=== PATIENT | female | born 1980 | race Two or more races ===

== ENCOUNTER 2024-02-05 07:08 | Emergency (ER) | payer OTHER ==
[~2024-02-05] VITALS: Ht 167.6 cm; Wt 87.1 kg
[2024-02-05] MEDS ORDERED: KETOROLAC TROMETHAMINE 60 MG VIAL IM ONE ×2 (09:00→09:03)
[2024-02-05] MEDS ORDERED: TRAMADOL HCL 50 MG TABLET PO ONE (09:00)
== END 2024-02-05 11:18 | disposition home or self-care (01) ==
LOC: ER 07:09
DX: S69.81XA Other specified injuries of right wrist, hand and finger(s), initial encounter (principal); W18.31XA Fall on same level due to stepping on an object, initial encounter; Y93.89 Activity, other specified; Y92.89 Other specified places as the place of occurrence of the external cause